=== PATIENT | female | born 1990 | race Caucasian/White ===

== ENCOUNTER 2021-11-05 02:07 | Emergency (ER) | payer BC ==
[2021-11-05] MEDS ORDERED: Acetaminophen 500 MG TAB ONE (04:17)
[2021-11-05] MEDS ORDERED: Ibuprofen 800 MG TAB ONE (04:17)
[2021-11-05] MEDS ORDERED: Dexamethasone 4 MG TAB ONE (04:45)
== END 2021-11-05 06:00 | disposition home or self-care (01) ==
LOC: ERS 02:07
DX: B34.9 Viral infection, unspecified (principal); Z20.822 Contact with and (suspected) exposure to COVID-19
CPT/HCPCS: 87804; 99283; J8540; U0003; U0005